=== PATIENT | female | born 2000 | race Caucasian/White ===

== ENCOUNTER 2021-09-19 09:32 | Emergency (ER) | payer OTHER ==
[~2021-09-19] VITALS: Ht 160 cm; Wt 70.5 kg
[2021-09-19 11:13] VITALS: BP 118/74
== END 2021-09-19 11:36 | disposition home or self-care (01) ==
LOC: EMS 09:57 → EDBD 09:57 → EMS 11:36
DX: Z11.1 Encounter for screening for respiratory tuberculosis (principal)
CPT/HCPCS: 71046; 99283